=== PATIENT | female | born 1965 | race African-American/Black ===

== ENCOUNTER 2016-06-02 15:07 | Emergency (ER) | payer OTHER, MEDICARE ==
[~2016-06-02 15:07] MED LIST: Sodium Chloride 0.9% 1,000 ML BAG ONE
[2016-06-02] MEDS ORDERED: Adenosine 6 MG/2 ML VIAL ONE ×2 (15:19→15:20)
[2016-06-02 15:35] LABS: #Basophils 0.2 thou/uL (0.0-0.2); #Eosinphils 0.2 thou/uL (0.0-0.7); #Lymphocytes 2.7 thou/uL (1.20-3.40); #Monocytes 0.4 thou/uL (0.11-0.59); #Neutrophils 3.2 thou/uL (1.40-6.50); %Basophils 2.6 % (0.0-1.0); %Eosinophils 3.3 % (0.0-10.0); %Lymphocytes 40.8 % (21.0-51.0); %Monocytes 5.7 % (0.0-10.0); %Neutrophils 47.7 % (42.0-75.0); Hemoglobin 13.5 g/dL (12.0-16.0); Mean Corpuscular Hemoglobin 28.8 pg (27.0-31.0); Mean Corpuscular Volume 87.1 fl (81.0-99.0); Mean Platelet Volume 10.2 fL (7.4-10.4); Platelet Count 315 thou/uL (130-400); RBC Distribution Width 13.8 % (11.5-14.5); Red Blood Cell (RBC) Count 4.69 mill/uL (4.20-5.40); White Blood Cell (WBC) Count 6.6 thou/uL (4.8-10.8)
[2016-06-02 15:45] LABS: ALT (SGPT) 11 U/L (0-55); Albumin 4.2 g/dL (3.5-5.0); Alkaline Phosphatase 71 U/L (40-150); Anion Gap 18 mmol/L (10-20); BUN (Urea Nitrogen) 12 mg/dL (9.8-20.1); Bilirubin, Total Less than 0.3 mg/dL (0.2-1.2); Calc. Creatinine Clearance 0 mL/min (70-130); Calcium 9.2 mg/dL (7.8-10.44); Carbon Dioxide 23 mmol/L (22-29); Chloride 104 mmol/L (98-107); Estimated GFR-MDRD 88; Globulin 3.7 g/dL (2.4-3.5); Glucose 102 mg/dL (70-105); Potassium 4.6 mmol/L (3.5-5.1); Protein, Total 7.9 g/dL (6.0-8.3); Sodium 140 mmol/L (136-145)
[2016-06-02 15:48] LABS: AST (SGOT) 24 U/L (5-34)
--- NOTE | 2016-06-02 16:07 | RAD ---
PORTABLE CHEST 1 VIEW: DATE: 06/02/26. TIME: 3:24 p.m. HISTORY: Chest pain. FINDINGS: The heart size is borderline. The lungs are expanded without focal areas of consolidation, pneumoth orax, martin pulmonary edema, or pleural effusions. IMPRESSION: No radiographic evidence of acute cardiopulmonary process. POS: [facility]
== END 2016-06-02 16:53 | disposition home or self-care (01) ==
LOC: MADERS 15:07
DX: I47.1 Supraventricular tachycardia (principal); I10 Essential (primary) hypertension; F41.9 Anxiety disorder, unspecified
CPT/HCPCS: 71010; 80053; 85025; 93005; 96361; 96374; J0153; J7050